=== PATIENT | male | born 1935 | race African-American/Black ===

== ENCOUNTER 2017-10-12 19:47 | Emergency (ER) | payer MEDICARE, OTHER ==
[~2017-10-12] VITALS: Ht 188 cm; Wt 83.9 kg
--- NOTE | 2017-10-12 19:50 | NUR ---
pt bibra to er bed 07. per report, family called 911. pt was wandering and agitated. placed on a room. vitals taken vss. 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 awaiting md shen.
--- NOTE | 2017-10-12 20:08 | NUR ---
DR LAU AT BEDSIDE FOR EVAL.
--- NOTE | 2017-10-12 20:13 | NUR ---
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
[2017-10-12 20:56] LABS: CALCIUM, SERUM 8.8 mg/dL (8.5-10.1); CARBON DIOXIDE 25 mmol/L (21-32); CHLORIDE 105 mmol/L (98-107); CREATININE 0.8 mg/dL (0.6-1.3); GLUCOSE 116 mg/dL (74-106); POTASSIUM 3.7 mmol/L (3.5-5.1); SODIUM SERUM 139 mmol/L (136-145); UREA NITROGEN, BLOOD 15 mg/dL (7-18)
[2017-10-12 21:02] LABS: BASOPHILS % (AUTO) 0.4 % (0.0-2.0); EOSINOPHILS % (AUTO) 1.2 % (0.0-6.0); HEMATOCRIT 41 % (39-51); HEMOGLOBIN 13.5 g/dL (13.5-17.5); LYMPHOCYTES # (AUTO) 1.5 /CMM (0.8-4.8); LYMPHOCYTES % (AUTO) 22.7 % (20.0-44.0); MEAN CORPUSCULAR HEMOGLOBIN 33 PG (26.0-33.0); MEAN CORPUSCULAR HGB CONC 33 g/dl (31.0-36.0); MEAN CORPUSCULAR VOLUME 99 fL (80-96); MONOCYTES # (AUTO) 0.5 /CMM (0.1-1.30); MONOCYTES % (AUTO) 7.6 % (2.0-12.0); NEUTROPHILS # (AUTO) 4.3 /CMM (1.8-8.9); NEUTROPHILS % (AUTO) 68.1 % (43.0-81.0); PLATELET COUNT (AUTO) 286 /CMM (150-450); RDW COEFFICIENT OF VARIATION 13.8 (11.5-15.0); RED BLOOD CELL COUNT(AUTO) 4.12 MIL/uL (4.5-6.0); WHITE BLOOD COUNT (AUTO) 6.4 K/uL (4.3-11.0)
[2017-10-12 21:06] LABS: ALANINE AMINOTRANSFERASE 25 U/L (12-78); ALBUMIN 3.7 g/dL (3.4-5.0); ALCOHOL, BLOOD < 3 mg/dL (0-0); ALKALINE PHOSPHATASE 54 U/L (46-116); ASPARTATE AMINOTRANSFERASE 20 U/L (15-37); BILIRUBIN,DIRECT 0.1 mg/dL (0.0-0.2); BILIRUBIN,TOTAL 0.6 mg/dL (0.2-1.0); TOTAL PROTEIN, SERUM 6.9 g/dL (6.4-8.2)
[2017-10-12 21:08] LABS: ACETAMINOPHEN 0 ug/ml (10-30); SALICYLATE 2.3 mg/dL (2.8-20.0)
[2017-10-12 21:10] VITALS: BP 132/84
[2017-10-12 21:16] LABS: APPEARANCE,URINE Clear (CLEAR); BILIRUBIN,URINE SMALL (NEGATIVE); BLOOD, URINE Trace-intact Ery/uL (NEGATIVE); COLOR,URINE Yellow (YELLOW); KETONES,URINE Trace (NEGATIVE); LEUKOCYTE ESTERASE ,URINE Negative (NEGATIVE); NITRITE, URINE Negative (NEGATIVE); PROTEIN,URINE 30 mg/dl (NEGATIVE); UGLUCOSE Negative (NEGATIVE); UROBILINOGEN,URINE 0.2 EU/dL (0.2)
[2017-10-12 21:26] LABS: BACTERIA,URINE Rare /HPF (None Seen); RBC,URINE 2-4/HPF /HPF (0-2); SQUAMOUS EPITHELIAL CELL,UR Moderate /HPF (None Seen); WBC,URINE 0-2 /HPF (0-3)
[2017-10-12 21:27] LABS: MUCUS,URINE Moderate /LPF (None Seen); URINE AMORPHOUS URATE Few /HPF (None Seen)
--- NOTE | 2017-10-12 21:30 | NUR ---
PT ACCEPTED BY DR NICOLE TO [facility]. # FOR REPORT [phone]
--- NOTE | 2017-10-12 21:45 | NUR ---
CALLED [facility] FOR THIS PATIENT, ETA [phone]
--- NOTE | 2017-10-12 22:08 | NUR ---
Lydia stoner in [facility] - 10/12/17 at 2215 by C[place] STARTED ANALI HATFIELD ORDERED
--- NOTE | 2017-10-12 22:15 | NUR ---
REPORT GIVEN TO NURSE AT [facility]. PT AWAITING TRANSPORT AMBULANCE.
--- NOTE | 2017-10-12 22:50 | NUR ---
TRANSPORTED TO [facility]. STABLE CONDITION.
== END 2017-10-12 22:56 ==
LOC: ER 19:47
DX: F31.9 Bipolar disorder, unspecified (principal); R45.1 Restlessness and agitation; I10 Essential (primary) hypertension
CPT/HCPCS: 80048; 80076; 80305; 80329; 81001; 85025; 36415; 99285; A4606; G0480 ×2; 81000-TC; Z7610

== ENCOUNTER 2018-08-17 14:44 | Emergency (ER) | payer OTHER, MEDICARE ==
[~2018-08-17] VITALS: Ht 180.3 cm; Wt 79.8 kg
--- NOTE | 2018-08-17 14:52 | NUR ---
TO ER BED 5,MONITORED,EKG,C/O SHARP PAIN ,MID CHEST WHICH RESOLVED PRIOR TO ARRIVAL. AWAITING MD HULL,NAD
--- NOTE | 2018-08-17 15:02 | NUR ---
DR FINCH AT BEDSIDE FOR EVAL
[2018-08-17 15:09] LABS: BASOPHILS # (AUTO) 0.1 /CMM (0.0-0.2); BASOPHILS % (AUTO) 1.1 % (0.0-2.0); EOSINOPHILS % (AUTO) 1.5 % (0.0-6.0); HEMATOCRIT 39 % (39-51); HEMOGLOBIN 13.5 g/dL (13.5-17.5); LYMPHOCYTES # (AUTO) 2.3 /CMM (0.8-4.8); LYMPHOCYTES % (AUTO) 50.7 % (20.0-44.0); MEAN CORPUSCULAR HGB CONC 34 g/dl (31.0-36.0); MEAN CORPUSCULAR VOLUME 104 fL (80-96); MONOCYTES # (AUTO) 0.4 /CMM (0.1-1.30); MONOCYTES % (AUTO) 9.1 % (2.0-12.0); NEUTROPHILS # (AUTO) 1.7 /CMM (1.8-8.9); NEUTROPHILS % (AUTO) 37.6 % (43.0-81.0); PLATELET COUNT (AUTO) 188 /CMM (150-450); RED BLOOD CELL COUNT(AUTO) 3.76 MIL/uL (4.5-6.0); WHITE BLOOD COUNT (AUTO) 4.6 K/uL (4.3-11.0)
[2018-08-17 15:17] LABS: CALCIUM, SERUM 8.7 mg/dL (8.5-10.1); CARBON DIOXIDE 29 mmol/L (21-32); CHLORIDE 104 mmol/L (98-107); CREATININE 0.8 mg/dL (0.6-1.3); GLUCOSE 134 mg/dL (74-106); POTASSIUM 3.5 mmol/L (3.5-5.1); SODIUM SERUM 139 mmol/L (136-145); UREA NITROGEN, BLOOD 23 mg/dL (7-18)
--- NOTE | 2018-08-17 15:52 | NUR ---
ERVIN [phone]
--- NOTE | 2018-08-17 19:12 | NUR ---
Patient discharged to home in stable condition. Written and verbal after care instructions given. Patient verbalizes understanding of instruction. IV removed. Catheter intact and site benign. Pressure and 4x4 applied to site. No bleeding noted.
[2018-08-17 19:13] VITALS: BP 120/62
== END 2018-08-17 19:14 | disposition home or self-care (01) ==
LOC: ER 14:49
DX: R07.89 Other chest pain (principal); F31.9 Bipolar disorder, unspecified; M41.9 Scoliosis, unspecified; F17.200 Nicotine dependence, unspecified, uncomplicated; Z96.653 Presence of artificial knee joint, bilateral; Z98.890 Other specified postprocedural states; Z60.2 Problems related to living alone
CPT/HCPCS: 36415; 71045-TC; 80048-TC; 84484-TC; 85025-TC

== ENCOUNTER → 2018-08-17 | Emergency (ER) | payer MEDICARE, OTHER ==
[~2018-08-17] VITALS: Ht 180.3 cm; Wt 79.8 kg
[~2018-08-17] MED LIST: ALBUTEROL FS 2.5 MG/3 ML VIAL.NEB NEB ONE; IV NS 0.9% 1,000 ML IV ONE
--- NOTE | 2018-08-17 22:00 | NUR ---
PT REFUSING BLOOD DRAW. MD AWARE.
--- NOTE | 2018-08-17 22:25 | NUR ---
Patient does not wish to proceed with medical care recommended by Dr. NEWBERRY. Patient given information related to possible complications, up to and including , which could occur as a result of leaving the hospital at this time. Patient verbalizes understanding of risks involved due to leaving against medical advice. Patient has signed AMA form.
--- NOTE | 2018-08-17 22:30 | NUR ---
PT REFUSED WHEEL CHAIR ASSISTANCE. PT AMBULATORY ACCOMPANIED BY .
== END | disposition left against medical advice (07) ==
LOC: ER 21:02
DX: R55 Syncope and collapse (principal); I95.9 Hypotension, unspecified; J98.01 Acute bronchospasm; F31.9 Bipolar disorder, unspecified; M41.9 Scoliosis, unspecified; F17.200 Nicotine dependence, unspecified, uncomplicated; Z96.653 Presence of artificial knee joint, bilateral; Z98.890 Other specified postprocedural states; Z60.2 Problems related to living alone
CPT/HCPCS: 93005; 99283; J7030 ×4